=== PATIENT | female | born 1950 | race Two or more races ===

== ENCOUNTER 2024-12-12 05:08 | Day surgery (SDC) | payer OTHER ==
[~2024-12-12 05:08] MED LIST: FOLIC ACID0.4 MG; LEVOXYL25 MCG PO; METOTREXATE; PROLIA60 MG/1 ML SQ; ZETIA10 MG PO
[2024-12-12] MEDS ORDERED: GENTAMICIN SULFATE 40 MG/ML VIAL ONE (06:54)
[2024-12-12] MEDS ORDERED: CHLORHEXIDINE GLUCONATE 120 ML BOTTLE TOP ONE (06:54)
[2024-12-12] MEDS ORDERED: CEFAZOLIN SODIUM 1,000 MG VIAL ONE (06:54)
[2024-12-12] MEDS ORDERED: LIDOCAINE HCL 1%/EPINEPHRINE 20ML VIAL IJ ONE (06:54)
[2024-12-12] MEDS ORDERED: TRAM1TAB98 PO (09:29)
[2024-12-12] MEDS ORDERED: MACROBID 100 M100 MG PO (09:29)
== END 2024-12-12 12:43 | disposition home or self-care (01) ==
LOC: CIR.AMB 05:08
PROVIDERS: ATTEND Obstetrics & Gynecology Gynecology
DX: N39.3 Stress incontinence (female) (male) (principal); E03.8 Other specified hypothyroidism; E78.5 Hyperlipidemia, unspecified
CPT/HCPCS: 57288; C1771